=== PATIENT | female | born 1990 ===

== ENCOUNTER 2024-02-15 12:34 | Emergency (ER) | payer OTHER ==
[~2024-02-15] VITALS: Ht 170.2 cm; Wt 81.3 kg
[2024-02-15 15:58] LABS: BILIRUBIN, URINE NEGATIVE (negative); BLOOD/HGB, URINE NEGATIVE (Negative); KETONE, URINE SMALL (Negative); LEUK ESTERASE, URINE MODERATE (negative); NITRITE, URINE NEGATIVE (negative); PH, URINE 7.5 (5-7)
[2024-02-15 15:59] LABS: BASOPHILS 0.2 % (0-2); EOSINOPHILS 1.4 % (0-6); HEMATOCRIT 39.1 % (35.0-50.0); HEMOGLOBIN 13.7 g/dL (12.0-18.0); LYMPHOCYTES 22.9 % (24-44); MCH 31.7 (27-36); MCV 90.6 fl (81-99); MONOCYTES 4.8 % (0-12); NEUTROPHILS 70.7 % (39-80); PLATELET COUNT 187 K/uL (140-440); RBC 4.31 M/ul (4.3-5.7); RDW 13.2 (10.5-15.0)
[2024-02-15 16:06] LABS: CRYSTALS, URINE NONE SEEN (0-1+); RED BLOOD CELLS, URINE 0-1 /hpf (0-5); WHITE BLOOD CELLS, URINE 41-50 /HPF (0-5)
[2024-02-15 16:07] LABS: BACTERIA, URINE 3+ /hpf (negative); CASTS, URINE NONE SEEN \\lpf; COLLECTION TYPE, URINE CLEAN CATCH; REFLEX CULTURE, URINE No (No)
[2024-02-15 16:14] LABS: ALBUMIN 3.4 g/dL (3.4-5.0); ALBUMIN/GLOBULIN RATIO 0.94 (1.1-2.4); ALCOHOL, MEDICAL <3 ng/dL (<3); ALKALINE PHOSPHATASE 61 U/L (46-116); ALT (SGPT) 24 U/L (14-59); ANION GAP 11.4 (7-21); AST (SGOT) 13 U/L (15-37); BILIRUBIN, TOTAL 0.4 ng/dL (0.2-1.0); BUN/CREATININE RATIO 8.21 (6.0-28.6); CALCIUM 8.8 mg/dL (8.5-10.1); CARBON DIOXIDE 26 mmol/L (21-32); CHLORIDE 103 mmol/L (98-107); CREATININE, SERUM 0.73 mg/dL (0.55-1.02); GLOMERULAR FILTRATION RATE,EST 111 mL/min (>60); POTASSIUM 3.4 mmol/L (3.5-5.1); UREA NITROGEN 6 mg/dL (7-18)
[2024-02-15 16:20] LABS: AMPHETAMINES, URINE POSITIVE (NEGATIVE); BARBITURATES, URINE NEGATIVE (NEGATIVE); BENZODIAZEPINE, URINE NEGATIVE (NEGATIVE); BUPRENORPHINE, URINE NEGATIVE (NEGATIVE); CANNABINOID, URINE NEGATIVE (NEGATIVE); COCAINE, URINE NEGATIVE (NEGATIVE); ECSTASY, URINE NEGATIVE (NEGATIVE); FENTANYL, URINE NEGATIVE (NEGATIVE); METHADONE, URINE NEGATIVE (NEGATIVE); OPIATES, URINE NEGATIVE (NEGATIVE); OXYCODONE, URINE NEGATIVE (NEGATIVE); PHENCYCLIDINE, URINE NEGATIVE (NEGATIVE)
[2024-02-15] MEDS ORDERED: [UNRECOGNIZED DRUG - OTHER] PO ONE (16:30)
[2024-02-15] MEDS ORDERED: metroNIDAZOLE 500 MG HOME.PACK PO ONE (16:30)
[2024-02-15] MEDS ORDERED: CEFTRIAXONE SOD 500 MG VIAL IM ONE (16:30)
[2024-02-15] MEDS ORDERED: AZITHROMYCIN 250 MG TAB PO ONE (16:45)
[2024-02-15 16:47] LABS: BILIRUBIN, URINE NEGATIVE (negative); BLOOD/HGB, URINE NEGATIVE (Negative); KETONE, URINE NEGATIVE (Negative); LEUK ESTERASE, URINE MODERATE (negative); NITRITE, URINE POSITIVE (negative); PH, URINE 8.5 (5-7)
[2024-02-15 16:52] LABS: RED BLOOD CELLS, URINE 0-1 /hpf (0-5); WHITE BLOOD CELLS, URINE 21-40 /HPF (0-5)
[2024-02-15 16:53] LABS: BACTERIA, URINE 3+ /hpf (negative); CASTS, URINE NONE SEEN \\lpf; CRYSTALS, URINE AMORPHOUS PHOSPH 3+ (0-1+)
[2024-02-15 16:54] LABS: COLLECTION TYPE, URINE CLEAN CATCH; REFLEX CULTURE, URINE Yes (No)
[2024-02-15 17:21] LABS: N. GONORRRHOEAE BY PCR NOT DETECTED (NOT DETECT)
[2024-02-15 17:28] VITALS: BP 112/72
[2024-02-17 08:58] LABS: HEPATITIS B SURFACE ANTIBODY 24.15 IU/L (())
[2024-02-17 09:03] LABS: HEPATITIS BE ANTIBODY Negative (Negative)
[2024-02-17 09:39] LABS: HIV 1,2 COMBO ANTIGEN/ANTIBODY Negative (Negative)
[2024-02-17 10:09] LABS: HEPATITIS C AB CIA INTERP Negative (Negative); HEPATITIS C ANTIBODY CIA INDEX 0.06 IV (())
[2024-02-18 12:00] LABS: TREPONEMA PALLIDUM (VDRL),SER Non Reactive (Non Reactive)
== END 2024-02-15 17:30 | disposition other institution, planned readmission (95) ==
LOC: ED 12:34
PROVIDERS: Emergency Medicine
DX: O9A.411 Sexual abuse complicating pregnancy, first trimester (principal); O23.41 Unspecified infection of urinary tract in pregnancy, first trimester; N39.0 Urinary tract infection, site not specified; Z3A.00 Weeks of gestation of pregnancy not specified
CPT/HCPCS: 36415; 80053; 80307; 81001; 84702; 84703; 85025; 86592; 86706; 86707; 86803; 87077; 87088; 87186; 96372; 99285-25; A9270; G0480; J0696